=== PATIENT | female | born 1930 | race Two or more races ===

== ENCOUNTER 2019-09-21 22:56 | Inpatient (IN) | payer MEDICARE, OTHER ==
[~2019-09-21] VITALS: Ht 154.9 cm; Wt 74.8 kg
[2019-09-21 23:07] VITALS: BP 126/86
--- NOTE | 2019-09-21 23:31 | Emergency Room Report ---
History of Present Illness General Chief Complaint: Dyspnea/Respdistress Source: EMS Present Illness HPI 88-year-old female history of hypertension, diabetes, Pacemaker presents for SOB. she states she has had Sob for 4 days. Denies cough, fever, N/V, diarrhea or chest pain. No sick contacts. She complains of mild orthopnea. Patient is wheelchair bound. Allergies: Coded Allergies: No Known Allergies (Unverified , 09/21/19) COVID-19 Screening Contact w/high risk pt: No Recent Travel to affected area: No Experienced COVID-19 symptoms?: Yes COVID-19 symptoms experienced: Shortness of Breath, Cough Patient History Reviewed Nursing Documentation: PMH: Agreed; PSxH: Agreed Nursing Documentation-PMH Hx Cardiac Problems: Yes Hx Hypertension: Yes Hx Diabetes: Yes Review of Systems All Other Systems: negative except mentioned in HPI Physical Exam Vital Signs Date Time Temp Pulse Resp B/P (MAP) Pulse Ox O2 Delivery O2 Flow Rate FiO2 09/21/19 22:58 97.5 88 16 126/86 (99) 90 Room Air Sp02 EP Interpretation: reviewed, normal General Appearance: well appearing, no apparent distress Head: normocephalic, atraumatic Eyes: bilateral eye PERRL, bilateral eye EOMI ENT: hearing grossly normal, moist mucus membranes Neck: full range of motion, supple Respiratory: no rhonchi, no respiratory distress, no retraction, other - scant audible wheeze Cardiovascular #1: normal peripheral pulses, regular rate, rhythm, no murmur Gastrointestinal: non tender, soft, non-distended, no guarding Musculoskeletal: other - BLE edema, 4 + up to the knees Neurologic: alert, oriented x3, no focal defects Skin: normal color, warm/dry Medical Decision Making Diagnostic Impression: Primary Impression: CHF (congestive heart failure) Additional Impressions: Shortness of breath Hypoxia Hyponatremia ER Course Patient presents for SOB. Differential diagnosis included but not limited to CHF , pneumonia, coronavirus, fluid overload to name a few. Patient hypoxic on room air 90%. Afebrile. Chest x-ray demonstrated cardiomegaly with evidence of mild pulmonary edema. Patient did have bilateral lower extremity edema. BNP was elevated to 8000. Troponin was negative. Patient also found to be hyponatremic. I suspect hypervolemic hyponatremia. Patient given IV Lasix in the ER. Will be admitted to the telemetry floor. Family was updated. I have a low suspicion for pneumonia or coronavirus infection at this time as patient had no fever. No cough. Laboratory Tests Test 09/21/19 23:05 09/22/19 00:20 White Blood Count 10.8 K/UL (4.8-10.8) Red Blood Count 4.36 M/UL (4.20-5.40) Hemoglobin 11.9 G/DL (12.0-16.0) L Hematocrit 33.4 % (37.0-47.0) L Mean Corpuscular Volume 77 FL (80-99) L Mean Corpuscular Hemoglobin 27.4 PG (27.0-31.0) Mean Corpuscular Hemoglobin Concent 35.6 G/DL (32.0-36.0) Red Cell Distribution Width 13.0 % (11.6-14.8) Platelet Count 241 K/UL (150-450) Mean Platelet Volume 4.8 FL (6.5-10.1) L Neutrophils (%) (Auto) 78.4 % (45.0-75.0) H Lymphocytes (%) (Auto) 10.5 % (20.0-45.0) L Monocytes (%) (Auto) 10.1 % (1.0-10.0) H Eosinophils (%) (Auto) 0.7 % (0.0-3.0) Basophils (%) (Auto) 0.4 % (0.0-2.0) Sodium Level 122 MMOL/L (136-145) L Potassium Level 4.6 MMOL/L (3.5-5.1) Chloride Level 87 MMOL/L (98-107) L Carbon Dioxide Level 23 MMOL/L (21-32) Anion Gap 12 mmol/L (5-15) Blood Urea Nitrogen 28 mg/dL (7-18) H Creatinine 1.2 MG/DL (0.55-1.30) Estimated Glomerular Filtration Rate 42.6 mL/min (>60) Glucose Level 130 MG/DL (74-106) H Lactic Acid Level 1.60 mmol/L (0.4-2.0) Calcium Level 8.1 MG/DL (8.5-10.1) L Total Bilirubin 0.7 MG/DL (0.2-1.0) Aspartate Amino Transferase (AST) 21 U/L (15-37) Alanine Aminotransferase (ALT) 25 U/L (12-78) Alkaline Phosphatase 87 U/L (46-116) Total Creatine Kinase 174 U/L (26-308) Creatine Kinase MB 3.9 NG/ML (0.0-3.6) H Creatine Kinase MB Relative Index 2.2 Troponin I 0.009 ng/mL (0.000-0.056) Pro-B-Type Natriuretic Peptide 8205 pg/mL (0-125) H Total Protein 7.2 G/DL (6.4-8.2) Albumin 3.8 G/DL (3.4-5.0) Globulin 3.4 g/dL Albumin/Globulin Ratio 1.1 (1.0-2.7) Urine Color Pale yellow Urine Appearance Slightly cloudy Urine pH 6 (4.5-8.0) Urine Specific [place] 1.015 (1.005-1.035) Urine Protein 1+ (NEGATIVE) H Urine Glucose (UA) Negative (NEGATIVE) Urine Ketones Negative (NEGATIVE) Urine Blood 5+ (NEGATIVE) H Urine Nitrite Negative (NEGATIVE) Urine Bilirubin Negative (NEGATIVE) Urine Urobilinogen Normal MG/DL (0.0-1.0) Urine Leukocyte Esterase 3+ (NEGATIVE) H Urine RBC Tntc /HPF (0 - 2) H Urine WBC 10-15 /HPF (0 - 2) H Urine Squamous Epithelial Cells Few /LPF (NONE/OCC) Urine Bacteria Moderate /HPF (NONE) H EKG Diagnostic Results Rhythm: other ST Segments: no acute changes Other Impression Rightward axis, rate of 61, abnormal EKG Chest X-Ray Diagnostic Results Chest X-Ray Diagnostic Results : Chest X-Ray Ordered: Yes # of Views/Limited/Complete: 1 View Indication: Shortness of Breath EP Interpretation: Yes Interpretation: other - Cardiomegaly, pulmonary vascular congestion, CHF pattern, Electronically Signed by: Andrea Fitzpatrick MD Last Vital Signs Date Time Temp Pulse Resp B/P (MAP) Pulse Ox O2 Delivery O2 Flow Rate FiO2 09/21/19 22:58 97.5 88 16 126/86 (99) 90 Room Air Disposition: ADMITTED INPATIENT Condition: Serious Andrea Fitzpatrick M.D. Sep 21, 2019 23:30
[2019-09-21 23:43] LABS: BASOPHILS % (AUTO) 0.4 % (0.0-2.0); EOSINOPHILS % (AUTO) 0.7 % (0.0-3.0); HEMATOCRIT 33.4 % (37.0-47.0); HEMOGLOBIN 11.9 G/DL (12.0-16.0); LYMPHOCYTES % (AUTO) 10.5 % (20.0-45.0); MEAN CORPUSCULAR VOLUME 77 FL (80-99); MONOCYTES % (AUTO) 10.1 % (1.0-10.0); NEUTROPHILS % (AUTO) 78.4 % (45.0-75.0); PLATELET COUNT 241 K/UL (150-450); RED BLOOD COUNT 4.36 M/UL (4.20-5.40); WHITE BLOOD COUNT 10.8 K/UL (4.8-10.8)
[2019-09-21 23:55] LABS: ANION GAP 12 mmol/L (5-15); BLOOD UREA NITROGEN 28 mg/dL (7-18); CALCIUM 8.1 MG/DL (8.5-10.1); CARBON DIOXIDE 23 MMOL/L (21-32); CHLORIDE 87 MMOL/L (98-107); CREATININE 1.2 MG/DL (0.55-1.30); POTASSIUM 4.6 MMOL/L (3.5-5.1); SODIUM 122 MMOL/L (136-145)
[2019-09-22] VITALS (10 sets, daily range): BP systolic 126–139; BP diastolic 60–94
[2019-09-22] MEDS ORDERED: GI Cocktail 50 ML LIQD ORAL ONE
[2019-09-22] MEDS ORDERED: Aluminum Hydroxide Gel Susp 15ml ORAL ONE (00:15)
[2019-09-22] MEDS ORDERED: Lidocaine 2% Visc 15ml soln ORAL ONE (00:15)
[2019-09-22 00:20] LABS: ALANINE AMINOTRANSFERASE 25 U/L (12-78); ALBUMIN 3.8 G/DL (3.4-5.0); ALBUMIN/GLOBULIN RATIO 1.1 (1.0-2.7); ALKALINE PHOSPHATASE 87 U/L (46-116); ASPARTATE AMINO TRANSFERASE 21 U/L (15-37); BILIRUBIN,TOTAL 0.7 MG/DL (0.2-1.0); CKMB 3.9 NG/ML (0.0-3.6); CREATINE KINASE 174 U/L (26-308)
[2019-09-22] MEDS ORDERED: ATENOLOL25 MG ORAL (00:22)
[2019-09-22] MEDS ORDERED: COLACE100 MG ORAL (00:22)
[2019-09-22] MEDS ORDERED: XARELTO10 MG ORAL (00:22)
--- NOTE | 2019-09-22 00:27 | Diagnostic Imaging Report ---
EXAM: XR Chest, 1 View CLINICAL HISTORY: SOB TECHNIQUE: Frontal view of the chest. COMPARISON: No relevant prior studies available. FINDINGS: Moderate enlargement of the cardiac/pericardial silhouette. Bilateral pulmonary vascular congestion. Increased interstitial patch of velar densities in both lungs with a perihilar lower lobe predominance most consistent with congestive heart failure. At least small bilateral pleural fluid collections. Negative for pneumothorax.
[2019-09-22] MEDS ORDERED: CARTIA XT240 MG ORAL (00:28)
[2019-09-22] MEDS ORDERED: LIPITOR40 MG ORAL (00:28)
[2019-09-22] MEDS ORDERED: ECOTRIN81 MG PO (00:28)
[2019-09-22] MEDS ORDERED: FUROSEMIDE40 MG ORAL (00:28)
[2019-09-22] MEDS ORDERED: GLUCOPHAGE500 MG ORAL (00:28)
[2019-09-22] MEDS ORDERED: PANTOPRAZOLE SO40 MG ORAL (00:28)
[2019-09-22] MEDS ORDERED: KOMBIGLYZE XR1 EAC1 PO (00:28)
[2019-09-22] MEDS ORDERED: LEVOTHYROXINE75 MCG ORAL (00:28)
[2019-09-22 00:56] LABS: BILIRUBIN, URINE NEGATIVE (NEGATIVE); COLOR,URINE PALE YELLOW; GLUCOSE, URINE (UA) NEGATIVE (NEGATIVE); KETONES,URINE NEGATIVE (NEGATIVE); LEUKOCYTE ESTERASE ,URINE 3+ (NEGATIVE); NITRITE,URINE NEGATIVE (NEGATIVE); PH,URINE 6 (4.5-8.0); PROTEIN,URINE 1+ (NEGATIVE); UROBILINOGEN,URINE NORMAL MG/DL (0.0-1.0)
[2019-09-22 01:06] LABS: APPEARANCE,URINE SLIGHTLY CLOUDY
[2019-09-22] MEDS ORDERED: cefTRIAXone 1 GM in NS 55 ML IVPB ONE (01:30)
[2019-09-22] MEDS ORDERED: Albuterol/Ipratropium 3ml neb HHN PRN (01:45)
[2019-09-22] MEDS ORDERED: Miralax 17gm pkt ORAL PRN (01:45)
[2019-09-22] MEDS ORDERED: NovoLOG Insulin Flexpen SUBQ SCH (06:30)
[2019-09-22] MEDS: NovoLOG Insulin Flexpen SUBQ SCH ×4 (06:30→21:00)
--- NOTE | 2019-09-22 07:32 | History and Physical ---
History of Present Illness General Date patient seen: Sep 22, 2019 Time patient seen: 06:25 Reason for Hospitalization: Dyspnea/Respdistress Present Illness HPI Heidi Knapp is a 88 yo F with PMH of HTN, HLD, HFpEF (64% in 2018), NIDDM ( type II), CVA, SSS s/p PPM, hypothyroid, GERD, paroxysmal Afib, PE on Xarelto who presented with SOB. History obtained from ED MD, ED staff, patient's daughter over the phone, and from patient at bedside with [employer] field talent qualification specialist [id number]. Patient states has been feeling more short of breath for the past 3-4 days. Also noted increased LE edema. Denies any orthopnea, sleeps with one pillow at baseline. Denies any recent changes to her medications, states she is followed closely by her PMD. Unsure about increased salt in her diet. Denies any recent fever, chills, cough, congestion, abd pain, diarrhea, chest pain/ pressure. Denies any O2 use at home at baseline. In ED, patient afebrile and hemodynamically stable, satting 90% on RA. Labs notable for unremarkable CBC, Na 122, lactate 1.6, Cr 1.2, BNP 8205, negative troponin. EKG with A paced rhythm, no acute ST-T wave changes. UA positive with 3+ leuk est, 10-15 WBC, moderate bacteria. However, patient denies any dysuria, increased urinary urgency/frequency, suprapubic pain. Allergies: Coded Allergies: No Known Allergies (Unverified , 09/21/19) COVID-19 Screening Contact w/high risk pt: No Recent Travel to affected area: No Experienced COVID-19 symptoms?: Yes COVID-19 symptoms experienced: Shortness of Breath Medication History Scheduled Aspirin (Ecotrin), 81 MG PO DAILY, (Reported) Atenolol* (Tenormin*), 25 MG ORAL DAILY, (Reported) Atorvastatin Calcium* (Lipitor*), 40 MG ORAL BEDTIME, (Reported) Diltiazem Hcl* (Cartia Xt*), 240 MG ORAL DAILY, (Reported) Docusate Sodium* (Colace*), 100 MG ORAL TWICE A DAY, (Reported) Furosemide* (Lasix*), 40 MG ORAL DAILY, (Reported) Levothyroxine Sodium* (Levothyroxine Sodium*), 75 MCG ORAL DAILY, (Reported) Metformin Hcl* (Glucophage*), 500 MG ORAL TWICE A DAY, (Reported) Pantoprazole* (Pantoprazole*), 20 MG ORAL DAILY, (Reported) Rivaroxaban (Xarelto*), 15 MG ORAL DAILY, (Reported) Saxagliptin Hcl/Metformin Hcl (Kombiglyze Xr 5-500 Mg Tablet), 1 EACH PO BID, ( Reported) Patient History Limited by: language barrier History Provided By: Patient, Family Member, Medical Record Healthcare decision maker Resuscitation status Advanced Directive on File Review of Systems Constitutional: Reports: no symptoms Eye: Reports: no symptoms ENT: Reports: no symptoms Respiratory: Reports: shortness of breath; Denies: cough, sputum Cardiovascular: Reports: edema; Denies: chest pain, palpitations, syncope Gastrointestinal: Reports: nausea; Denies: abdominal pain, vomiting Genitourinary: Denies: dysuria, frequency, hematuria, urgency Musculoskeletal: Reports: no symptoms Skin: Reports: no symptoms Psychiatric: Reports: no symptoms Neurological: Reports: no symptoms Endocrine: Reports: no symptoms Hematologic/Lymphatic: Reports: no symptoms Physical Exam General Appearance: no apparent distress, alert Lines, tubes and drains: peripheral HEENT: normocephalic, atraumatic, PERRL, EOMI Neck: supple Respiratory/Chest: crackles/rales - bibasilar crackles with faint wheezing Cardiovascular/Chest: normal rate, regular rhythm, systolic murmur Abdomen: normal bowel sounds, non tender, soft Extremities: severe edema - 3+ bilateral pitting edema to thighs Neurologic: keeper head II-XII grossly normal, alert, oriented x 3 Last 24 Hour Vital Signs Date Time Temp Pulse Resp B/P (MAP) Pulse Ox O2 Delivery O2 Flow Rate FiO2 09/22/19 05:33 97.5 88 14 139/93 90 Room Air 09/22/19 03:57 97.5 87 14 129/87 90 Room Air 09/22/19 01:15 97.5 90 16 132/84 90 Room Air 09/22/19 00:43 88 16 Room Air 09/21/19 23:07 97.5 88 16 126/86 90 Room Air 09/21/19 22:58 97.5 88 16 126/86 (99) 90 Room Air Intake and Output 09/21/19 09/22/19 19:00 07:00 Intake Total 0 ml Balance 0 ml Intake Oral 0 ml Laboratory Tests Test 09/21/19 23:05 09/22/19 00:20 White Blood Count 10.8 K/UL (4.8-10.8) Red Blood Count 4.36 M/UL (4.20-5.40) Hemoglobin 11.9 G/DL (12.0-16.0) L Hematocrit 33.4 % (37.0-47.0) L Mean Corpuscular Volume 77 FL (80-99) L Mean Corpuscular Hemoglobin 27.4 PG (27.0-31.0) Mean Corpuscular Hemoglobin Concent 35.6 G/DL (32.0-36.0) Red Cell Distribution Width 13.0 % (11.6-14.8) Platelet Count 241 K/UL (150-450) Mean Platelet Volume 4.8 FL (6.5-10.1) L Neutrophils (%) (Auto) 78.4 % (45.0-75.0) H Lymphocytes (%) (Auto) 10.5 % (20.0-45.0) L Monocytes (%) (Auto) 10.1 % (1.0-10.0) H Eosinophils (%) (Auto) 0.7 % (0.0-3.0) Basophils (%) (Auto) 0.4 % (0.0-2.0) Sodium Level 122 MMOL/L (136-145) L Potassium Level 4.6 MMOL/L (3.5-5.1) Chloride Level 87 MMOL/L (98-107) L Carbon Dioxide Level 23 MMOL/L (21-32) Anion Gap 12 mmol/L (5-15) Blood Urea Nitrogen 28 mg/dL (7-18) H Creatinine 1.2 MG/DL (0.55-1.30) Estimat Glomerular Filtration Rate 42.6 mL/min (>60) Glucose Level 130 MG/DL (74-106) H Lactic Acid Level 1.60 mmol/L (0.4-2.0) Calcium Level 8.1 MG/DL (8.5-10.1) L Total Bilirubin 0.7 MG/DL (0.2-1.0) Aspartate Amino Transf (AST/SGOT) 21 U/L (15-37) Alanine Aminotransferase (ALT/SGPT) 25 U/L (12-78) Alkaline Phosphatase 87 U/L (46-116) Total Creatine Kinase 174 U/L (26-308) Creatine Kinase MB 3.9 NG/ML (0.0-3.6) H Creatine Kinase MB Relative Index 2.2 Troponin I 0.009 ng/mL (0.000-0.056) Pro-B-Type Natriuretic Peptide 8205 pg/mL (0-125) H Total Protein 7.2 G/DL (6.4-8.2) Albumin 3.8 G/DL (3.4-5.0) Globulin 3.4 g/dL Albumin/Globulin Ratio 1.1 (1.0-2.7) Urine Color Pale yellow Urine Appearance Slightly cloudy Urine pH 6 (4.5-8.0) Urine Specific [place] 1.015 (1.005-1.035) Urine Protein 1+ (NEGATIVE) H Urine Glucose (UA) Negative (NEGATIVE) Urine Ketones Negative (NEGATIVE) Urine Blood 5+ (NEGATIVE) H Urine Nitrite Negative (NEGATIVE) Urine Bilirubin Negative (NEGATIVE) Urine Urobilinogen Normal MG/DL (0.0-1.0) Urine Leukocyte Esterase 3+ (NEGATIVE) H Urine RBC Tntc /HPF (0 - 2) H Urine WBC 10-15 /HPF (0 - 2) H Urine Squamous Epithelial Cells Few /LPF (NONE/OCC) Urine Bacteria Moderate /HPF (NONE) H Height (Feet): 5 Height (Inches): 2.00 Weight (Pounds): 140 Medications Current Medications Medications (Trade) Dose Ordered Sig/Jameson Route PRN Reason Start Time Stop Time Status Last Admin Dose Admin Albuterol/ Ipratropium (Albuterol/ Ipratropium) 3 ml Q6H PRN HHN Shortness of Breath 09/22/19 01:45 09/27/19 01:44 Dextrose (Dextrose 50%) 25 ml Q30M PRN IV Hypoglycemia 09/22/19 01:45 12/21/19 01:44 Dextrose (Dextrose 50%) 50 ml Q30M PRN IV Hypoglycemia 09/22/19 01:45 12/21/19 01:44 Docusate Sodium (Colace) 100 mg EVERY 12 HOURS ORAL 09/22/19 09:00 10/22/19 08:59 Furosemide (Lasix) 40 mg Q12HR IV 09/22/19 09:00 10/22/19 08:59 Insulin Aspart (NovoLOG) BEFORE MEALS AND HS SUBQ 09/22/19 06:30 12/21/19 06:29 Ondansetron HCl (Zofran) 4 mg Q6H PRN IVP Nausea & Vomiting 09/22/19 01:45 10/22/19 01:44 09/22/19 03:45 Polyethylene Glycol (Miralax) 17 gm DAILYPRN PRN ORAL Constipation 09/22/19 01:45 10/22/19 01:44 Assessment/Plan Status: progressing Assessment/Plan: Heidi Knapp is a 88 yo woman with PMH of HTN, HLD, HFpEF (64% in 2018), CVA , NIDDM (type II), SSS s/p PPM, hypothyroid, DI, paroxysmal Afib on Xarelto, and PE on Xarelto who presented with several days of SOB and LE edema, found with BNP 8205 and CXR consistent with PVC, admitted for acute on chronic HFpEF exacerbation. #Acute on chronic HFpEF (64%) exacerbation #Acute hypoxemic respiratory failure 2/2 above #LE edema #HTN #HLD #Paroxysmal Afib on Xarelto #PE on Xarelto #SSS s/p PPM - EKG with A paced rhythm, no acute ST-T wave changes - CXR with moderate cardiomegaly and PVC and small bilateral pleural effusions - BNP 8205 on admission, monitor periodically for improvement - s/p lasix IV 40mg x1 in ED with improvement - Continue lasix 40mg IV BID for now. Hold home PO lasix while on IV lasix. Adjust lasix daily based on fluid status. - Currently requiring 2L NC to maintain O2 sat >/= 92%, titrate O2 to maintain > /= 92% - Strict I/Os, daily weight - Tele monitor - Check TTE given last was in 2018 per records in [facility] from [facility] - Monitor BMP/Mg while on IV diuresis - Continue home aspirin 81mg PO daily, atenolol 25mg PO daily, atorvastatin 40mg PO qhs, diltiazem 240mg PO daily - Continue home Xarelto 15mg PO daily #Hyponatremia - Likely hypervolemic hyponatremia in setting of significant fluid overload - Should improve with diuresis per above - Na 122 on admission - Monitor BMP closely #Asymptomatic bacteruria - UA positive with 3+leuk est, 10-15WBC, and moderate bacteria on admission - However, patient asymptomatic without dysuria, urgency, frequency, or suprapubic tenderness on exam. Also without systemic symptoms of infection (no fever, leukocytosis) - s/p ceftriaxone IV x1 in ED - Hold off on further abx at this time - F/U UCX - F/U BCX #NIDDM (type II) - Hold home metformin - Novolog SSI qachs - Monitor FS qachs and adjust insulin as needed - F/U hgb A1C #hx CVA - Continue home aspirin and statin per above #GERD - Continue home protonix 20mg PO daily #Hypothyroid - Continue home levothyroxine 75mcg PO daily - F/U TSH F: none E: Monitor BMP/Mg N: Cardiac diabetic diet DPOA is patient's daughters. Full Code. I spent 72 minutes on the care of this patient, with 37 minutes spent on counseling and coordination of care. Discussed with ED MD, ED staff, patient, and patient's daughter over the phone. Reviewed prior records from [facility] chart. Time of note may not reflect time of encounter. Johana Siddiqui M.D. Sep 22, 2019 07:31
[2019-09-22] MEDS: dilTIAZem HCl CD 240mg cap ORAL SCH (08:34)
[2019-09-22] MEDS: Aspirin EC 81mg tab ORAL SCH (08:35)
[2019-09-22] MEDS: Atenolol 25mg tab ORAL SCH (08:35)
[2019-09-22] MEDS: Docusate 100mg cap ORAL SCH ×2 (08:35→21:26)
--- NOTE | 2019-09-22 09:53 | Consultation ---
History of Present Illness General Chief Complaint: Dyspnea/Respdistress Present Illness HPI HTN, HLD, HFpEF (64% in 2018), NIDDM (type II), CVA, SSS s/p PPM, hypothyroid, GERD, paroxysmal Afib, PE on Xarelto who presented with SOB. Patient states has been feeling more short of breath for the past 3-4 days. Also noted increased LE edema. Denies any orthopnea, sleeps with one pillow at baseline. Denies any recent changes to her medications, states she is followed closely by her PMD. Unsure about increased salt in her diet. Denies any recent fever, chills, cough, congestion, abd pain, diarrhea, chest pain/pressure. Denies any O2 use at home at baseline. In ED, patient afebrile and hemodynamically stable, satting 90% on RA. Labs notable for unremarkable CBC, Na 122, lactate 1.6, Cr 1.2, BNP 8205, negative troponin. EKG with A paced rhythm, no acute ST-T wave changes. UA positive with 3+ leuk est, 10-15 WBC, moderate bacteria. Allergies: Coded Allergies: No Known Allergies (Unverified , 09/21/19) Medication History Scheduled Aspirin (Ecotrin), 81 MG PO DAILY, (Reported) Atenolol* (Tenormin*), 25 MG ORAL DAILY, (Reported) Atorvastatin Calcium* (Lipitor*), 40 MG ORAL BEDTIME, (Reported) Diltiazem Hcl* (Cartia Xt*), 240 MG ORAL DAILY, (Reported) Docusate Sodium* (Colace*), 100 MG ORAL TWICE A DAY, (Reported) Furosemide* (Lasix*), 40 MG ORAL DAILY, (Reported) Levothyroxine Sodium* (Levothyroxine Sodium*), 75 MCG ORAL DAILY, (Reported) Metformin Hcl* (Glucophage*), 500 MG ORAL TWICE A DAY, (Reported) Pantoprazole* (Pantoprazole*), 20 MG ORAL DAILY, (Reported) Rivaroxaban (Xarelto*), 15 MG ORAL DAILY, (Reported) Saxagliptin Hcl/Metformin Hcl (Kombiglyze Xr 5-500 Mg Tablet), 1 EACH PO BID, ( Reported) Patient History Healthcare decision maker Resuscitation status Advanced Directive on File Review of Systems All Other Systems: negative except mentioned in HPI Physical Exam General Appearance: WD/WN, no apparent distress Lines, tubes and drains: peripheral HEENT: normocephalic, atraumatic Neck: non-tender, normal alignment Respiratory/Chest: chest wall non-tender, lungs clear Cardiovascular/Chest: normal peripheral pulses, normal rate, regular rhythm Abdomen: normal bowel sounds, non tender, soft Extremities: pitting, other - 2+ Skin Exam: normal pigmentation, warm/dry Neurologic: alert, oriented x 3 Last 24 Hour Vital Signs Date Time Temp Pulse Resp B/P (MAP) Pulse Ox O2 Delivery O2 Flow Rate FiO2 09/22/19 08:43 98.2 61 15 135/60 97 Room Air 4.0 09/22/19 08:35 63 129/78 09/22/19 08:34 63 129/78 09/22/19 07:15 98.2 63 16 129/78 98 Room Air 4.0 09/22/19 05:33 97.5 88 14 139/93 90 Room Air 09/22/19 03:57 97.5 87 14 129/87 90 Room Air 09/22/19 01:15 97.5 90 16 132/84 90 Room Air 09/22/19 00:43 88 16 Room Air 09/21/19 23:07 97.5 88 16 126/86 90 Room Air 09/21/19 22:58 97.5 88 16 126/86 (99) 90 Room Air Intake and Output 09/21/19 09/22/19 19:00 07:00 Intake Total 0 ml Balance 0 ml Intake Oral 0 ml Laboratory Tests Test 09/21/19 23:05 09/22/19 00:20 White Blood Count 10.8 K/UL (4.8-10.8) Red Blood Count 4.36 M/UL (4.20-5.40) Hemoglobin 11.9 G/DL (12.0-16.0) L Hematocrit 33.4 % (37.0-47.0) L Mean Corpuscular Volume 77 FL (80-99) L Mean Corpuscular Hemoglobin 27.4 PG (27.0-31.0) Mean Corpuscular Hemoglobin Concent 35.6 G/DL (32.0-36.0) Red Cell Distribution Width 13.0 % (11.6-14.8) Platelet Count 241 K/UL (150-450) Mean Platelet Volume 4.8 FL (6.5-10.1) L Neutrophils (%) (Auto) 78.4 % (45.0-75.0) H Lymphocytes (%) (Auto) 10.5 % (20.0-45.0) L Monocytes (%) (Auto) 10.1 % (1.0-10.0) H Eosinophils (%) (Auto) 0.7 % (0.0-3.0) Basophils (%) (Auto) 0.4 % (0.0-2.0) Sodium Level 122 MMOL/L (136-145) L Potassium Level 4.6 MMOL/L (3.5-5.1) Chloride Level 87 MMOL/L (98-107) L Carbon Dioxide Level 23 MMOL/L (21-32) Anion Gap 12 mmol/L (5-15) Blood Urea Nitrogen 28 mg/dL (7-18) H Creatinine 1.2 MG/DL (0.55-1.30) Estimat Glomerular Filtration Rate 42.6 mL/min (>60) Glucose Level 130 MG/DL (74-106) H Lactic Acid Level 1.60 mmol/L (0.4-2.0) Calcium Level 8.1 MG/DL (8.5-10.1) L Total Bilirubin 0.7 MG/DL (0.2-1.0) Aspartate Amino Transf (AST/SGOT) 21 U/L (15-37) Alanine Aminotransferase (ALT/SGPT) 25 U/L (12-78) Alkaline Phosphatase 87 U/L (46-116) Total Creatine Kinase 174 U/L (26-308) Creatine Kinase MB 3.9 NG/ML (0.0-3.6) H Creatine Kinase MB Relative Index 2.2 Troponin I 0.009 ng/mL (0.000-0.056) Pro-B-Type Natriuretic Peptide 8205 pg/mL (0-125) H Total Protein 7.2 G/DL (6.4-8.2) Albumin 3.8 G/DL (3.4-5.0) Globulin 3.4 g/dL Albumin/Globulin Ratio 1.1 (1.0-2.7) Urine Color Pale yellow Urine Appearance Slightly cloudy Urine pH 6 (4.5-8.0) Urine Specific [place] 1.015 (1.005-1.035) Urine Protein 1+ (NEGATIVE) H Urine Glucose (UA) Negative (NEGATIVE) Urine Ketones Negative (NEGATIVE) Urine Blood 5+ (NEGATIVE) H Urine Nitrite Negative (NEGATIVE) Urine Bilirubin Negative (NEGATIVE) Urine Urobilinogen Normal MG/DL (0.0-1.0) Urine Leukocyte Esterase 3+ (NEGATIVE) H Urine RBC Tntc /HPF (0 - 2) H Urine WBC 10-15 /HPF (0 - 2) H Urine Squamous Epithelial Cells Few /LPF (NONE/OCC) Urine Bacteria Moderate /HPF (NONE) H Height (Feet): 5 Height (Inches): 2.00 Weight (Pounds): 140 Medications Current Medications Medications (Trade) Dose Ordered Sig/Jameson Route PRN Reason Start Time Stop Time Status Last Admin Dose Admin Albuterol/ Ipratropium (Albuterol/ Ipratropium) 3 ml Q6H PRN HHN Shortness of Breath 09/22/19 01:45 09/27/19 01:44 Aspirin (Ecotrin) 81 mg DAILY ORAL 09/22/19 09:00 11/06/19 08:59 09/22/19 08:35 Atenolol (Tenormin) 25 mg DAILY ORAL 09/22/19 09:00 10/22/19 08:59 09/22/19 08:35 Atorvastatin Calcium (Lipitor) 40 mg BEDTIME ORAL 09/22/19 21:00 12/21/19 20:59 Dextrose (Dextrose 50%) 25 ml Q30M PRN IV Hypoglycemia 09/22/19 01:45 12/21/19 01:44 Dextrose (Dextrose 50%) 50 ml Q30M PRN IV Hypoglycemia 09/22/19 01:45 12/21/19 01:44 Diltiazem HCl (Cardizem CD) 240 mg DAILY ORAL 09/22/19 09:00 10/22/19 08:59 09/22/19 08:34 Docusate Sodium (Colace) 100 mg EVERY 12 HOURS ORAL 09/22/19 09:00 10/22/19 08:59 09/22/19 08:35 Furosemide (Lasix) 40 mg Q12HR IV 09/22/19 09:00 10/22/19 08:59 09/22/19 08:35 Insulin Aspart (NovoLOG) BEFORE MEALS AND HS SUBQ 09/22/19 06:30 12/21/19 06:29 Levothyroxine Sodium (Synthroid) 75 mcg ACBREAKFAST ORAL 09/22/19 09:00 10/22/19 08:59 09/22/19 08:34 Ondansetron HCl (Zofran) 4 mg Q6H PRN IVP Nausea & Vomiting 09/22/19 01:45 10/22/19 01:44 09/22/19 03:45 Pantoprazole (Protonix) 40 mg DAILY ORAL 09/22/19 09:00 10/22/19 08:59 09/22/19 08:35 Polyethylene Glycol (Miralax) 17 gm DAILYPRN PRN ORAL Constipation 09/22/19 01:45 10/22/19 01:44 Rivaroxaban (Xarelto) 15 mg QPM ORAL 09/22/19 16:30 12/21/19 16:29 Assessment/Plan Diagnosis [place]: #hyponatremia- hypervolumic in the setting of CHF #acute on chronic CHF- likely diastolic #HTN #HLD #HFpEF (64% in 2018) # NIDDM (type II) # CVA # SSS s/p PPM #hypothyroid #GERD #paroxysmal Afib #PE on Xarelto - check urine chem - TSH - uric cortisol - check serum osm - lasix 40 IV BID - 2d echo - monitor UOP - continue diltiazem - continue xarelto - monitor renal function - cardiology eval - continue levothyroxine pending echo I spent 70 minutes on the care of this patient, with 35minutes spent on counseling and coordination of care. Reviewed prior records from [facility] chart. Fatmata Trent M.D. Sep 22, 2019 09:53
--- NOTE | 2019-09-22 15:00 | Cardiac Electrophysiology PN ---
Subjective Subjective [id number] Objective Last 24 Hour Vital Signs Date Time Temp Pulse Resp B/P (MAP) Pulse Ox O2 Delivery O2 Flow Rate FiO2 09/22/19 14:45 98.2 62 17 129/68 97 Nasal Cannula 4.0 09/22/19 14:45 98.2 62 17 129/68 97 Nasal Cannula 4.0 09/22/19 12:00 98.1 66 15 134/77 95 Room Air 4.0 09/22/19 10:00 98.1 60 16 132/94 98 Room Air 4.0 09/22/19 08:43 98.2 61 15 135/60 97 Room Air 4.0 09/22/19 08:35 63 129/78 09/22/19 08:34 63 129/78 09/22/19 07:15 98.2 63 16 129/78 98 Room Air 4.0 09/22/19 05:33 97.5 88 14 139/93 90 Room Air 09/22/19 03:57 97.5 87 14 129/87 90 Room Air 09/22/19 01:15 97.5 90 16 132/84 90 Room Air 09/22/19 00:43 88 16 Room Air 09/21/19 23:07 97.5 88 16 126/86 90 Room Air 09/21/19 22:58 97.5 88 16 126/86 (99) 90 Room Air Intake and Output 09/21/19 09/22/19 19:00 07:00 Intake Total 0 ml Balance 0 ml Intake Oral 0 ml Laboratory Tests Test 09/21/19 23:05 09/22/19 00:20 White Blood Count 10.8 K/UL (4.8-10.8) Red Blood Count 4.36 M/UL (4.20-5.40) Hemoglobin 11.9 G/DL (12.0-16.0) L Hematocrit 33.4 % (37.0-47.0) L Mean Corpuscular Volume 77 FL (80-99) L Mean Corpuscular Hemoglobin 27.4 PG (27.0-31.0) Mean Corpuscular Hemoglobin Concent 35.6 G/DL (32.0-36.0) Red Cell Distribution Width 13.0 % (11.6-14.8) Platelet Count 241 K/UL (150-450) Mean Platelet Volume 4.8 FL (6.5-10.1) L Neutrophils (%) (Auto) 78.4 % (45.0-75.0) H Lymphocytes (%) (Auto) 10.5 % (20.0-45.0) L Monocytes (%) (Auto) 10.1 % (1.0-10.0) H Eosinophils (%) (Auto) 0.7 % (0.0-3.0) Basophils (%) (Auto) 0.4 % (0.0-2.0) Sodium Level 122 MMOL/L (136-145) L Potassium Level 4.6 MMOL/L (3.5-5.1) Chloride Level 87 MMOL/L (98-107) L Carbon Dioxide Level 23 MMOL/L (21-32) Anion Gap 12 mmol/L (5-15) Blood Urea Nitrogen 28 mg/dL (7-18) H Creatinine 1.2 MG/DL (0.55-1.30) Estimat Glomerular Filtration Rate 42.6 mL/min (>60) Glucose Level 130 MG/DL (74-106) H Lactic Acid Level 1.60 mmol/L (0.4-2.0) Calcium Level 8.1 MG/DL (8.5-10.1) L Total Bilirubin 0.7 MG/DL (0.2-1.0) Aspartate Amino Transf (AST/SGOT) 21 U/L (15-37) Alanine Aminotransferase (ALT/SGPT) 25 U/L (12-78) Alkaline Phosphatase 87 U/L (46-116) Total Creatine Kinase 174 U/L (26-308) Creatine Kinase MB 3.9 NG/ML (0.0-3.6) H Creatine Kinase MB Relative Index 2.2 Troponin I 0.009 ng/mL (0.000-0.056) Pro-B-Type Natriuretic Peptide 8205 pg/mL (0-125) H Total Protein 7.2 G/DL (6.4-8.2) Albumin 3.8 G/DL (3.4-5.0) Globulin 3.4 g/dL Albumin/Globulin Ratio 1.1 (1.0-2.7) Urine Color Pale yellow Urine Appearance Slightly cloudy Urine pH 6 (4.5-8.0) Urine Specific Essie 1.015 (1.005-1.035) Urine Protein 1+ (NEGATIVE) H Urine Glucose (UA) Negative (NEGATIVE) Urine Ketones Negative (NEGATIVE) Urine Blood 5+ (NEGATIVE) H Urine Nitrite Negative (NEGATIVE) Urine Bilirubin Negative (NEGATIVE) Urine Urobilinogen Normal MG/DL (0.0-1.0) Urine Leukocyte Esterase 3+ (NEGATIVE) H Urine RBC Tntc /HPF (0 - 2) H Urine WBC 10-15 /HPF (0 - 2) H Urine Squamous Epithelial Cells Few /LPF (NONE/OCC) Urine Bacteria Moderate /HPF (NONE) H Nish Paulino MD Sep 22, 2019 15:00
[2019-09-22 15:47] LABS: BASOPHILS % (AUTO) 0.9 % (0.0-2.0); EOSINOPHILS % (AUTO) 0.8 % (0.0-3.0); HEMATOCRIT 38.4 % (37.0-47.0); HEMOGLOBIN 12.3 G/DL (12.0-16.0); LYMPHOCYTES % (AUTO) 9.9 % (20.0-45.0); MEAN CORPUSCULAR VOLUME 81 FL (80-99); MONOCYTES % (AUTO) 10.6 % (1.0-10.0); NEUTROPHILS % (AUTO) 77.8 % (45.0-75.0); PLATELET COUNT 239 K/UL (150-450); RED BLOOD COUNT 4.73 M/UL (4.20-5.40); RED CELL DISTRIBUTION WIDTH 15.3 % (11.6-14.8); WHITE BLOOD COUNT 11.3 K/UL (4.8-10.8)
[2019-09-22 16:08] LABS: BLOOD UREA NITROGEN 23 mg/dL (7-18); CARBON DIOXIDE 33 MMOL/L (21-32); CHLORIDE 90 MMOL/L (98-107); CREATININE 1.3 MG/DL (0.55-1.30); POTASSIUM 4.5 MMOL/L (3.5-5.1); SODIUM 128 MMOL/L (136-145)
[2019-09-22] MEDS ORDERED: Xarelto 15mg tab ORAL SCH (16:30)
[2019-09-22] MEDS ORDERED: cefTRIAXone 1 GM in NS 55 ML IVPB SCH (21:00)
[2019-09-22] MEDS ORDERED: Atorvastatin 20mg tab ORAL SCH (21:00)
--- NOTE | 2019-09-22 22:59 | Consultation ---
DATE OF CONSULTATION: 09/22/2019 CARDIOLOGY CONSULTATION CONSULTING PHYSICIAN: Nish Paulino MD REFERRING PHYSICIAN: Betina Buenrostro MD. REASON FOR CONSULTATION: Evaluation of congestive heart failure. HISTORY OF PRESENT ILLNESS: The patient is an 88-year-old lady with history of hypertension, paroxysmal atrial fibrillation, diabetes, CVA as well as history of sick sinus syndrome status post dual-chamber pacemaker implantation as well as heart failure with preserved ejection fraction of 64% in 2018, paroxysmal atrial fibrillation on Xarelto, who came to the emergency for increasing shortness of breath. The patient also with increasing lower extremity edema. The patient usually followed by her primary care physician closely. The patient was noted to have a sodium 122, lactate of 1.6. BNP of more than 8000. Creatinine 1.2. Initial troponin was negative. Her EKG was atrially paced rhythm with no acute ST-T wave abnormality. The patient also was found to have urinary tract infection. A Cardiology consultation was obtained for further evaluation. REVIEW OF SYSTEMS: Review of systems was negative other what was mentioned in the history of present illness. PAST MEDICAL HISTORY: As mentioned above. FAMILY HISTORY: Noncontributory. SOCIAL HISTORY: She lives with family. Does not smoke or drink alcohol. MEDICATIONS: Include aspirin, atenolol, Cardizem, Lipitor, Lasix, Synthroid, metformin, Xarelto. PHYSICAL EXAMINATION: VITAL SIGNS: Blood pressure of 134/77, pulse 66, respirations 15, temperature 98.1. HEAD AND NECK: Positive JVD. LUNGS: Decreased breath sounds. CARDIOVASCULAR: Regular S1 and S2 with no gallop. Pacemaker in left subclavian. ABDOMEN: Soft. EXTREMITIES: A 2+ pitting edema. LABORATORY AND DIAGNOSTIC DATA: Her labs show white count of 10.8, hemoglobin 12, hematocrit 33, and platelet count is 241. Sodium 122, potassium is 4.6, BUN of 28, creatinine 1.2, and glucose of 130. Initial troponin is negative. ASSESSMENT AND PLAN: 1. Congestive heart failure exacerbation, likely due to diastolic dysfunction. The patient is also very severely hyponatremic, sodium 122. Start the patient on Lasix 40 mg IV b.i.d. Continue atenolol 25 mg daily and Cardizem CD 240 mg daily. Repeat echocardiogram. 2. Atrial fibrillation, rate is controlled on atenolol 25 mg daily and Cardizem as well off anticoagulation. 3. Status post pacemaker implantation. The patient does not know the brand of pacemaker. We will try to find the pacemaker and interrogate the pacemaker for further evaluation. 4. Hyperlipidemia on Lipitor. 5. Hypertension. Continue atenolol, Cardizem, and Lasix. 6. Hypothyroidism on Synthroid. 7. Diabetes on insulin. 8. Dementia. Thank you very much for allowing me to participate in the care of this patient. Please do not hesitate to contact me for any questions regarding my evaluation. Sincerely, Nish Paulino M.D. DR: Mary JOB#: [id number] CC:
[2019-09-23] VITALS: BP 124/70
[2019-09-23 04:00] VITALS: BP 130/71
[2019-09-23] MEDS: NovoLOG Insulin Flexpen SUBQ SCH ×2 (06:30→11:36)
[2019-09-23 08:00] VITALS: BP 133/58
[2019-09-23 08:53] LABS: BASOPHILS % (AUTO) 0.5 % (0.0-2.0); EOSINOPHILS % (AUTO) 1.2 % (0.0-3.0); HEMATOCRIT 37.2 % (37.0-47.0); HEMOGLOBIN 12.6 G/DL (12.0-16.0); LYMPHOCYTES % (AUTO) 10.9 % (20.0-45.0); MEAN CORPUSCULAR VOLUME 78 FL (80-99); MONOCYTES % (AUTO) 9.7 % (1.0-10.0); NEUTROPHILS % (AUTO) 77.7 % (45.0-75.0); PLATELET COUNT 268 K/UL (150-450); RED BLOOD COUNT 4.79 M/UL (4.20-5.40); RED CELL DISTRIBUTION WIDTH 13.6 % (11.6-14.8); WHITE BLOOD COUNT 11.6 K/UL (4.8-10.8)
[2019-09-23] MEDS: dilTIAZem HCl CD 240mg cap ORAL SCH (08:56)
[2019-09-23] MEDS: Aspirin EC 81mg tab ORAL SCH (08:56)
[2019-09-23] MEDS: Docusate 100mg cap ORAL SCH (08:57)
[2019-09-23] MEDS: Atenolol 25mg tab ORAL SCH (08:57)
--- NOTE | 2019-09-23 09:28 | General Progress Note ---
Assessment/Plan Status: progressing Assessment/Plan: Heidi Knapp is a 88 yo woman with PMH of HTN, HLD, HFpEF (64% in 2018), CVA , NIDDM (type II), SSS s/p PPM, hypothyroid, DI, paroxysmal Afib on Xarelto, and PE on Xarelto who presented with several days of SOB and LE edema, found with BNP 8205 and CXR consistent with PVC, admitted for acute on chronic HFpEF exacerbation. #Acute on chronic HFpEF (64%) exacerbation #Acute hypoxemic respiratory failure 2/2 above #LE edema #HTN #HLD #Paroxysmal Afib on Xarelto #PE on Xarelto #SSS s/p PPM - cont. in-patient medical care - EKG with A paced rhythm, no acute ST-T wave changes - CXR with moderate cardiomegaly and PVC and small bilateral pleural effusions - BNP 8205 on admission, monitor periodically for improvement - Cont lasix 40mg IV BID. Hold home PO lasix while on IV lasix. Adjust lasix daily based on fluid status. - Currently requiring 2L NC to maintain O2 sat >/= 92%, titrate O2 to maintain > /= 92% - Strict I/Os, daily weight - Tele monitor - TTE pending - Monitor BMP/Mg while on IV diuresis - Continue home aspirin 81mg PO daily, atenolol 25mg PO daily, atorvastatin 40mg PO qhs, diltiazem 240mg PO daily - Continue home Xarelto 15mg PO daily #Hyponatremia #HypoMagnesemia - Likely hypervolemic hyponatremia in setting of significant fluid overload - Should improve with diuresis per above - Na 122 on admission, improved 130 - Monitor BMP closely - replace Mg, cont. to monitor and replace PRN - Nephro consulted, recs appreciated #Asymptomatic bacteruria - UA positive with 3+leuk est, 10-15WBC, and moderate bacteria on admission - However, patient asymptomatic without dysuria, urgency, frequency, or suprapubic tenderness on exam. Also without systemic symptoms of infection (no fever, leukocytosis) - s/p ceftriaxone IV x1 in ED - Hold off on further abx at this time - F/U UCX - F/U BCX #NIDDM (type II) - Hold home metformin - Novolog SSI qachs - Monitor FS qachs and adjust insulin as needed - F/U hgb A1C #hx CVA - Continue home aspirin and statin per above #GERD - Continue home protonix 20mg PO daily #Hypothyroid - Continue home levothyroxine 75mcg PO daily - F/U TSH F: none E: Monitor BMP/Mg N: Cardiac diabetic diet DPOA is patient's daughters. Full Code. I spent 35 minutes on the care of this patient, >50% time spent on counseling and coordination of care. Discussed with consulting physicians, RN. Additional 25 mins was spent with chart review. Time of note may not reflect time of encounter. Subjective Allergies: Coded Allergies: No Known Allergies (Unverified , 09/21/19) Subjective Follow up for acute on chronic CHF exacerbation, COVID r/o pending. Pt states she is unable to lay flat, cont. to have some phlem w/cough, otherwise no SOB when sitting up right. Objective Last 24 Hour Vital Signs Date Time Temp Pulse Resp B/P (MAP) Pulse Ox O2 Delivery O2 Flow Rate FiO2 09/23/19 08:57 83 133/58 09/23/19 08:56 83 133/58 09/23/19 08:00 97.9 83 18 133/58 (83) 93 09/23/19 04:00 4.0 09/23/19 04:00 98.2 66 20 130/71 (90) 96 09/23/19 03:41 60 09/23/19 00:00 98.0 66 20 124/70 (88) 98 09/22/19 23:30 60 09/22/19 21:00 Nasal Cannula 4.0 09/22/19 20:00 98.6 68 20 135/75 (95) 98 09/22/19 20:00 4.0 09/22/19 20:00 62 09/22/19 17:08 Room Air 09/22/19 14:45 98.2 62 17 129/68 97 Nasal Cannula 4.0 09/22/19 14:45 98.2 62 17 129/68 97 Nasal Cannula 4.0 09/22/19 12:00 98.1 66 15 134/77 95 Room Air 4.0 09/22/19 10:00 98.1 60 16 132/94 98 Room Air 4.0 Intake and Output 09/22/19 09/23/19 19:00 07:00 Intake Total 240 ml 480 ml Output Total 1500 ml Balance 240 ml -1020 ml Intake Oral 240 ml 480 ml Output Urine Total 1500 ml # Voids 6 Laboratory Tests 09/22/19 15:30: White Blood Count 11.3H, Red Blood Count 4.73, Hemoglobin 12.3, Hematocrit 38.4 , Mean Corpuscular Volume 81, Mean Corpuscular Hemoglobin 26.0L, Mean Corpuscular Hemoglobin Concent 32.1, Red Cell Distribution Width 15.3H, Platelet Count 239, Mean Platelet Volume 5.3L, Neutrophils (%) (Auto) 77.8H, Lymphocytes (%) (Auto) 9.9L, Monocytes (%) (Auto) 10.6H, Eosinophils (%) (Auto) 0.8, Basophils (%) (Auto) 0.9, Sodium Level 128L, Potassium Level 4.5, Chloride Level 90L, Carbon Dioxide Level 33H, Blood Urea Nitrogen 23H, Creatinine 1.3, Estimat Glomerular Filtration Rate 38.8, Glucose Level 119H, Osmolality 268L, Calcium Level 8.0L, Thyroid Stimulating Hormone (TSH) 1.857, Cortisol [Pending] 09/23/19 08:00: White Blood Count 11.6H, Red Blood Count 4.79, Hemoglobin 12.6, Hematocrit 37.2 , Mean Corpuscular Volume 78L, Mean Corpuscular Hemoglobin 26.4L, Mean Corpuscular Hemoglobin Concent 33.9, Red Cell Distribution Width 13.6, Platelet Count 268, Mean Platelet Volume 4.9L, Neutrophils (%) (Auto) 77.7H, Lymphocytes (%) (Auto) 10.9L, Monocytes (%) (Auto) 9.7, Eosinophils (%) (Auto) 1.2, Basophils (%) (Auto) 0.5, Sodium Level [Pending], Potassium Level [Pending], Chloride Level [Pending], Carbon Dioxide Level [Pending], Blood Urea Nitrogen [ Pending], Creatinine [Pending], Estimat Glomerular Filtration Rate [Pending], Glucose Level [Pending], Calcium Level [Pending], Thyroid Stimulating Hormone ( TSH) [Pending], Hemoglobin A1c [Pending], Phosphorus Level [Pending], Magnesium Level [Pending], Pro-B-Type Natriuretic Peptide [Pending], Triglycerides Level [ Pending], Cholesterol Level [Pending], LDL Cholesterol [Pending], HDL Cholesterol [Pending], Cholesterol/HDL Ratio [Pending] Height (Feet): 5 Height (Inches): 1.00 Weight (Pounds): 165 Objective General Appearance: no apparent distress, alert Lines, tubes and drains: peripheral HEENT: normocephalic, atraumatic, PERRL, EOMI Neck: supple Respiratory/Chest: CTAB, no accessory muscle usage Cardiovascular/Chest: normal rate, regular rhythm, systolic murmur Abdomen: normal bowel sounds, non tender, soft Extremities: severe edema - 2+ bilateral pitting edema to thighs Neurologic: web assistant II-XII grossly normal, alert, oriented x 3 Luis Reyes M.D. Sep 23, 2019 09:28
[2019-09-23 09:29] LABS: ANION GAP 13 mmol/L (5-15); BLOOD UREA NITROGEN 18 mg/dL (7-18); CALCIUM 8.1 MG/DL (8.5-10.1); CARBON DIOXIDE 26 MMOL/L (21-32); CHLORIDE 91 MMOL/L (98-107); CHOLESTEROL 130 MG/DL (< 200); CREATININE 1.1 MG/DL (0.55-1.30); HDL CHOLESTEROL 92 MG/DL (40-60); POTASSIUM 4.1 MMOL/L (3.5-5.1); SODIUM 130 MMOL/L (136-145); TRIGLYCERIDES 52 MG/DL (30-150)
[2019-09-23] MEDS ORDERED: Magnesium Oxide 400mg tab ORAL SCH (10:00)
--- NOTE | 2019-09-23 10:43 | Cardiac Electrophysiology PN ---
Assessment/Plan Assessment/Plan 1. Congestive heart failure exacerbation, likely due to diastolic dysfunction. The patient is also very severely hyponatremic, sodium 122. Continue Lasix 40 mg IV bid, atenolol 25 mg daily and Cardizem CD 240 mg daily. Repeat echocardiogram pending 2. Atrial fibrillation, in SR/ A paced on atenolol 25 mg daily and Cardizem and Xarelto 15 daily 3. Status post pacemaker implantation. The patient does not know the brand of pacemaker. We will try to find the pacemaker and interrogate the pacemaker for further evaluation. 4. Hyperlipidemia on Lipitor. 5. Hypertension. Continue atenolol, Cardizem, and Lasix. 6. Hypothyroidism on Synthroid. 7. Diabetes on insulin. 8. Dementia. 9. SOB. rule out Covid. Results pending 10. Low Na 120s now 138 DW RN Subjective Subjective In SR and A paced in 60s. In isolation pending COVID results Objective Last 24 Hour Vital Signs Date Time Temp Pulse Resp B/P (MAP) Pulse Ox O2 Delivery O2 Flow Rate FiO2 09/23/19 08:57 83 133/58 09/23/19 08:56 83 133/58 09/23/19 08:00 4.0 09/23/19 08:00 76 09/23/19 08:00 97.9 83 18 133/58 (83) 93 09/23/19 04:00 4.0 09/23/19 04:00 98.2 66 20 130/71 (90) 96 09/23/19 03:41 60 09/23/19 00:00 98.0 66 20 124/70 (88) 98 09/22/19 23:30 60 09/22/19 21:00 Nasal Cannula 4.0 09/22/19 20:00 98.6 68 20 135/75 (95) 98 09/22/19 20:00 4.0 09/22/19 20:00 62 09/22/19 17:08 Room Air 09/22/19 14:45 98.2 62 17 129/68 97 Nasal Cannula 4.0 09/22/19 14:45 98.2 62 17 129/68 97 Nasal Cannula 4.0 09/22/19 12:00 98.1 66 15 134/77 95 Room Air 4.0 Intake and Output 09/22/19 09/23/19 19:00 07:00 Intake Total 240 ml 480 ml Output Total 1500 ml Balance 240 ml -1020 ml Intake Oral 240 ml 480 ml Output Urine Total 1500 ml # Voids 6 Laboratory Tests Test 09/22/19 15:30 09/23/19 08:00 White Blood Count 11.3 K/UL (4.8-10.8) H 11.6 K/UL (4.8-10.8) H Red Blood Count 4.73 M/UL (4.20-5.40) 4.79 M/UL (4.20-5.40) Hemoglobin 12.3 G/DL (12.0-16.0) 12.6 G/DL (12.0-16.0) Hematocrit 38.4 % (37.0-47.0) 37.2 % (37.0-47.0) Mean Corpuscular Volume 81 FL (80-99) 78 FL (80-99) L Mean Corpuscular Hemoglobin 26.0 PG (27.0-31.0) L 26.4 PG (27.0-31.0) L Mean Corpuscular Hemoglobin Concent 32.1 G/DL (32.0-36.0) 33.9 G/DL (32.0-36.0) Red Cell Distribution Width 15.3 % (11.6-14.8) H 13.6 % (11.6-14.8) Platelet Count 239 K/UL (150-450) 268 K/UL (150-450) Mean Platelet Volume 5.3 FL (6.5-10.1) L 4.9 FL (6.5-10.1) L Neutrophils (%) (Auto) 77.8 % (45.0-75.0) H 77.7 % (45.0-75.0) H Lymphocytes (%) (Auto) 9.9 % (20.0-45.0) L 10.9 % (20.0-45.0) L Monocytes (%) (Auto) 10.6 % (1.0-10.0) H 9.7 % (1.0-10.0) Eosinophils (%) (Auto) 0.8 % (0.0-3.0) 1.2 % (0.0-3.0) Basophils (%) (Auto) 0.9 % (0.0-2.0) 0.5 % (0.0-2.0) Sodium Level 128 MMOL/L (136-145) L 130 MMOL/L (136-145) L Potassium Level 4.5 MMOL/L (3.5-5.1) 4.1 MMOL/L (3.5-5.1) Chloride Level 90 MMOL/L (98-107) L 91 MMOL/L (98-107) L Carbon Dioxide Level 33 MMOL/L (21-32) H 26 MMOL/L (21-32) Blood Urea Nitrogen 23 mg/dL (7-18) H 18 mg/dL (7-18) Creatinine 1.3 MG/DL (0.55-1.30) 1.1 MG/DL (0.55-1.30) Estimat Glomerular Filtration Rate 38.8 mL/min (>60) 47.1 mL/min (>60) Glucose Level 119 MG/DL (74-106) H 108 MG/DL (74-106) H Osmolality 268 mOsm/kg (297-317) L Calcium Level 8.0 MG/DL (8.5-10.1) L 8.1 MG/DL (8.5-10.1) L Thyroid Stimulating Hormone (TSH) 1.857 uiU/mL (0.358-3.740) 1.837 uiU/mL (0.358-3.740) Cortisol Pending Anion Gap 13 mmol/L (5-15) Hemoglobin A1c 7.6 % (4.3-6.0) H Phosphorus Level 3.3 MG/DL (2.5-4.9) Magnesium Level 1.7 MG/DL (1.8-2.4) L Pro-B-Type Natriuretic Peptide 6876 pg/mL (0-125) H Triglycerides Level 52 MG/DL (30-150) Cholesterol Level 130 MG/DL (< 200) LDL Cholesterol 29 mg/dL (<100) HDL Cholesterol 92 MG/DL (40-60) H Cholesterol/HDL Ratio 1.4 (3.3-4.4) L Microbiology Date/Time Source Procedure Growth Status 09/21/19 23:18 Blood Blood Culture - Preliminary NO GROWTH AFTER 24 HOURS Resulted 09/21/19 23:05 Blood Blood Culture - Preliminary NO GROWTH AFTER 24 HOURS Resulted 09/22/19 00:20 Urine,Clean Catch Urine Culture - Preliminary Gram Negative Bacillus 1 Resulted Nish Paulino MD Sep 23, 2019 10:43
--- NOTE | 2019-09-23 10:56 | Nephrology Progress Note ---
Assessment/Plan Plan - lasix 40 IV BID - 2d echo - monitor UOP - continue diltiazem - continue xarelto - monitor renal function - cardiology eval - continue levothyroxine - pulm eval - breathing treatments I spent 70 minutes on the care of this patient, with 35minutes spent on counseling and coordination of care. Reviewed prior records from [facility] chart. Subjective ROS Limited/Unobtainable: Yes Subjective sodium improved Cr 1.3 getting diuressed breathing slightly better Objective Objective Last 24 Hour Vital Signs Date Time Temp Pulse Resp B/P (MAP) Pulse Ox O2 Delivery O2 Flow Rate FiO2 09/23/19 09:00 Nasal Cannula 4.0 09/23/19 08:57 83 133/58 09/23/19 08:56 83 133/58 09/23/19 08:00 4.0 09/23/19 08:00 76 09/23/19 08:00 97.9 83 18 133/58 (83) 93 09/23/19 04:00 4.0 09/23/19 04:00 98.2 66 20 130/71 (90) 96 09/23/19 03:41 60 09/23/19 00:00 98.0 66 20 124/70 (88) 98 09/22/19 23:30 60 09/22/19 21:00 Nasal Cannula 4.0 09/22/19 20:00 98.6 68 20 135/75 (95) 98 09/22/19 20:00 4.0 09/22/19 20:00 62 09/22/19 17:08 Room Air 09/22/19 14:45 98.2 62 17 129/68 97 Nasal Cannula 4.0 09/22/19 14:45 98.2 62 17 129/68 97 Nasal Cannula 4.0 09/22/19 12:00 98.1 66 15 134/77 95 Room Air 4.0 Intake and Output 09/22/19 09/23/19 19:00 07:00 Intake Total 240 ml 480 ml Output Total 1500 ml Balance 240 ml -1020 ml Intake Oral 240 ml 480 ml Output Urine Total 1500 ml # Voids 6 Laboratory Tests 09/22/19 15:30: White Blood Count 11.3H, Red Blood Count 4.73, Hemoglobin 12.3, Hematocrit 38.4 , Mean Corpuscular Volume 81, Mean Corpuscular Hemoglobin 26.0L, Mean Corpuscular Hemoglobin Concent 32.1, Red Cell Distribution Width 15.3H, Platelet Count 239, Mean Platelet Volume 5.3L, Neutrophils (%) (Auto) 77.8H, Lymphocytes (%) (Auto) 9.9L, Monocytes (%) (Auto) 10.6H, Eosinophils (%) (Auto) 0.8, Basophils (%) (Auto) 0.9, Sodium Level 128L, Potassium Level 4.5, Chloride Level 90L, Carbon Dioxide Level 33H, Blood Urea Nitrogen 23H, Creatinine 1.3, Estimat Glomerular Filtration Rate 38.8, Glucose Level 119H, Osmolality 268L, Calcium Level 8.0L, Thyroid Stimulating Hormone (TSH) 1.857, Cortisol [Pending] 09/23/19 08:00: White Blood Count 11.6H, Red Blood Count 4.79, Hemoglobin 12.6, Hematocrit 37.2 , Mean Corpuscular Volume 78L, Mean Corpuscular Hemoglobin 26.4L, Mean Corpuscular Hemoglobin Concent 33.9, Red Cell Distribution Width 13.6, Platelet Count 268, Mean Platelet Volume 4.9L, Neutrophils (%) (Auto) 77.7H, Lymphocytes (%) (Auto) 10.9L, Monocytes (%) (Auto) 9.7, Eosinophils (%) (Auto) 1.2, Basophils (%) (Auto) 0.5, Sodium Level 130L, Potassium Level 4.1, Chloride Level 91L, Carbon Dioxide Level 26, Blood Urea Nitrogen 18, Creatinine 1.1, Estimat Glomerular Filtration Rate 47.1, Glucose Level 108H, Calcium Level 8.1L , Thyroid Stimulating Hormone (TSH) 1.837, Anion Gap 13, Hemoglobin A1c 7.6H, Phosphorus Level 3.3, Magnesium Level 1.7L, Pro-B-Type Natriuretic Peptide 6876H , Triglycerides Level 52, Cholesterol Level 130, LDL Cholesterol 29, HDL Cholesterol 92H, Cholesterol/HDL Ratio 1.4L Height (Feet): 5 Height (Inches): 1.00 Weight (Pounds): 165 Objective General Appearance: no apparent distress, alert Lines, tubes and drains: peripheral HEENT: normocephalic, atraumatic, PERRL, EOMI Neck: supple Respiratory/Chest: CTAB, no accessory muscle usage Cardiovascular/Chest: normal rate, regular rhythm, systolic murmur Abdomen: normal bowel sounds, non tender, soft Extremities: severe edema - 2+ bilateral pitting edema to thighs Neurologic: still cleaner tube II-XII grossly normal, alert, oriented x 3 Fatmata Trent M.D. Sep 23, 2019 10:56
[2019-09-23 12:00] VITALS: BP 105/51
[2019-09-23 16:00] VITALS: BP 122/51
--- NOTE | 2019-09-23 19:30 | Consultation ---
DATE OF CONSULTATION: PULMONARY CONSULTATION CONSULTING PHYSICIAN: Rashawn Hodge M.D. HISTORY OF PRESENT ILLNESS: This is an 88-year-old female who is admitted to the hospital with shortness of breath. Patient has a history of hypertension, congestive heart failure, diabetes mellitus, and previous CVA. She has also had a permanent pacemaker in place due to sick sinus syndrome. Patient has a history of hypothyroidism and GERD as well as has had a PE and is on Xarelto. She has been having more shortness of breath for several days. She also noted worsening edema. Patient was admitted to the hospital. She was found to be saturating 90% on room air only. She was also hyponatremic and an elevated BNP. EKG showed paced rhythm. PAST MEDICAL HISTORY: Hypertension, hyperlipidemia, diabetes mellitus, previous CVA, hypothyroidism, GERD, AFib, history of PE. HOME MEDICATIONS: Xarelto, Protonix, Glucophage, Synthroid, Lasix, Colace, Cartia, Lipitor, Tenormin, and Ecotrin. REVIEW OF SYSTEMS: Unreliable. PHYSICAL EXAMINATION: GENERAL: Reveals an 88-year-old female. HEENT: Unremarkable. CHEST: Decreased breath sounds bilaterally with bibasilar crackles. ABDOMEN: Soft. EXTREMITIES: There is 2+ pitting edema. VITAL SIGNS: Blood pressure is 130/50, heart rate is 84, respirations are 26, O2 saturation 95% on 4 liters of oxygen. LABORATORY DATA: Lab testing shows white count 11.6, hemoglobin of 12. Sodium now 130, glucose 108. Urinalysis negative. X-ray chest was obtained, which shows moderate cardiac enlargement and alveolar densities bilaterally. IMPRESSION: 1. Decompensated congestive heart failure. 2. Hypertension. 3. Diabetes mellitus. 4. Hypoxemia. 5. CVA. 6. Permanent pacemaker. DISCUSSION: Admit to the hospital. Patient needs increased diuresis. I doubt if she has COVID-19. We will follow as butcher head. Order oxygen and pulmonary hygiene. Breathing treatments as needed. We will follow carefully. Rashawn Hodge M.D. DR: PARADISE JOB#: [id number] CC:
--- NOTE | 2019-09-26 16:18 | Discharge Summary ---
Discharge Summary Hospital Course Date of Admission Sep 22, 2019 at 00:25 Date of Discharge Sep 23, 2019 at 16:30 Admitting Diagnosis SOB, CHF HPI Heidi Knapp is a 88 year old female who was admitted on Sep 22, 2019 at 00:25 for Short Of Breath,Congestive Heart Failure Hospital Course Late Entry Heidi Knapp is a 88 yo woman with PMH of HTN, HLD, HFpEF (64% in 2018), CVA , NIDDM (type II), SSS s/p PPM, hypothyroid, DI, paroxysmal Afib on Xarelto, and PE on Xarelto who presented with several days of SOB and LE edema, found with BNP 8205 and CXR consistent with PVC, admitted for acute on chronic HFpEF exacerbation. Patient was given Lasix, stated she had mild improvement in SOB. Was informed by nurse Pt wants to leave AMA. Discussed with pt and daughter Candice Bhardwaj , stated that leaving is against medical advice at this time. Pt has heart failure and that leaving may lead to cardiac arrest or sudden , pt and daughter states they understand the risks and continues to wish to leave against medical advice. #Acute on chronic HFpEF (64%) exacerbation #Acute hypoxemic respiratory failure 2/2 above #LE edema #HTN #HLD #Paroxysmal Afib on Xarelto #PE on Xarelto #SSS s/p PPM #Hyponatremia #HypoMagnesemia #Asymptomatic bacteruria #NIDDM (type II) #hx CVA #GERD #Hypothyroid Discharge Discharge Vital Signs Last Vital Signs Date Time Temp Pulse Resp B/P (MAP) Pulse Ox O2 Delivery O2 Flow Rate FiO2 09/23/19 16:00 97.9 62 18 122/51 (74) 93 09/23/19 12:00 4.0 09/23/19 09:00 Nasal Cannula Discharge Disposition Patient was discharged to Luis Reyes M.D. Sep 26, 2019 16:18
== END 2019-09-23 16:30 | disposition left against medical advice (07) | DRG 291 ==
LOC: EDBD 22:56 → EMR 23:33 → 2E 09-22 00:25 → EDBEDREQ 09-22 13:04
DX: I11.0 Hypertensive heart disease with heart failure (principal); J96.01 Acute respiratory failure with hypoxia; E87.1 Hypo-osmolality and hyponatremia; I50.33 Acute on chronic diastolic (congestive) heart failure; E11.9 Type 2 diabetes mellitus without complications; Z79.84 Long term (current) use of oral hypoglycemic drugs; Z86.73 Personal history of transient ischemic attack (TIA), and cerebral infarction without residual deficits; E03.9 Hypothyroidism, unspecified; K21.9 Gastro-esophageal reflux disease without esophagitis; Z86.711 Personal history of pulmonary embolism; Z79.01 Long term (current) use of anticoagulants; I48.0 Paroxysmal atrial fibrillation; Z95.0 Presence of cardiac pacemaker; Z79.82 Long term (current) use of aspirin; F03.90 Unspecified dementia, unspecified severity, without behavioral disturbance, psychotic disturbance, mood disturbance, and anxiety; I49.5 Sick sinus syndrome
CPT/HCPCS: 36415; 71045; 80048; 80053; 80061; 81003; 82533; 82550; 82553; 83036; 83605; 83735; 83880; 83930; 84100; 84443; 84484; 85025; 87040; 87086; 87181; 87635; 93005; 96365; 96375; 99285; J1815; J2405